=== PATIENT | female | born 1945 | race Caucasian/White ===

== ENCOUNTER → 2020-04-17 | Outpatient (CLI) | payer MEDICARE ==
[2016-08-21 19:19] VITALS: BP 183/90
[~2020-04-17] MED LIST: ASPI-252 PO; ATOR10TA60 PO; DOXY100C14 PO; HYDR-3165 PO; HYDR12.59 PO; LISI-334 PO; METO50TA6 PO
== END ==
LOC: LAB 13:08
PROVIDERS: ATTEND Nurse Anesthetist, Certified Registered
DX: Z01.812 Encounter for preprocedural laboratory examination (principal); D50.9 Iron deficiency anemia, unspecified; Z20.828 Contact with and (suspected) exposure to other viral communicable diseases
CPT/HCPCS: U0003-CS

== ENCOUNTER → 2020-04-20 | Day surgery (SDC) | payer MEDICARE ==
[~2020-04-20] MED LIST changes: +IPRATRPIUM/ALBUTEROL 0.5/2.5MG 3 ML NEBU. NEB PRN; +IV RINGERS SOLUTION,LACTATED 1,000 ML IV SCH; +LIDOCAINE 2% PF 5 ML VIAL. ONE; +MIDAZOLAM HCL PF 2 MG/2 ML VIAL. IV ONE; +ONDANSETRON PF 4 MG/2 ML VIAL. IV PRN; +PROPOFOL 10,000 MCG/ML (20ML) VIAL IV ONE; +SODIUM PHOSPHATES 19/7GM 133 ML ENEMA. ONE; +SODIUM PHOSPHATES 19/7GM 133 ML ENEMA. PR ONE
--- NOTE | 2020-04-20 12:28 | NUR ---
IP: enema results clear yellow.
[2020-04-20 13:57] VITALS: BP 135/77
--- NOTE | 2020-04-26 19:09 | PATHOLOGY ---
[facility] Accession Number: [id number] . 01 Material submitted: . PART A: stomach - BIOPSY ANTRUM, GASTRITIS PART B: cecum - POLYP CECUM . 01 Clinical history: . HX ULCER, POLYP . 02 Diagnosis: A. Gastric biopsies, antrum: - Chronic gastritis, mild. . B. Colon biopsies, cecal polyp: - Consistent with prominent mucosal fold, with focal mucosal lymphoid aggregate and focally increased intraepithelial eosinophils. . (JPM:glenn; 04/26/2020) BANNER 04/26/2020 1836 Local . 02 Comment: Sections of the gastric biopsy reveal segments of gastric antral mucosa showing congestion and mild chronic inflammation. A properly controlled immunoperoxidase stain for Helicobacter is negative for Helicobacter organisms. . Sections of the cecal biopsy reveal segments of colonic mucosa, consistent with prominent mucosal fold. One of the biopsy segments does contain a portion of a mucosal-associated lymphoid aggregate. Elsewhere, the mucosa shows focally increased numbers of intraepithelial eosinophils. The significance of the latter finding is unknown. There is no evidence of a chronic destructive colitis. There are no adenomatous changes or evidence of malignancy. . (JPM:glenn; 04/26/2020) . Special stain performed: Immunoperoxidase stain for Helicobacter on A1. . 02 Electronically signed: . Juan José Mathews MD, Pathologist NPI- [id number] . 01 Gross description: . A. The specimen is received in formalin, labeled "Car[place] Carmichael, biopsy antrum". Received are two segments of pale acosta soft tissue ranging in size from 0.4 to 0.5 cm in maximum dimensions. The specimen is submitted entirely in cassette A1. . B. The specimen is received in formalin, labeled "Carol Carmichael, polyp cecum". Received are two segments of pale acosta soft tissue ranging in size from 0.3 to 0.7 cm in maximum dimensions. The specimen is submitted entirely in cassette B1. (CAA; 04/25/2020) QAC/QAC 04/25/2020 1151 Local . 02 Pathologist provided ICD-10: K29.50, Z87.19 . 02 CPT . 981562, 791415, [id number] Specimen Comment: A courtesy copy of this report has been sent to [phone] Specimen Comment: Report sent to Performed at: 01 [facility] [address] [place] [address] [address], [place] [id number] MD Arnoldo Strong MD Phone: [phone] Performed at: 02 [facility] [address] [place] [id number] MD Juan José Mathews MD Phone: [phone]
== END | disposition home or self-care (01) ==
LOC: SURG 11:15
PROVIDERS: ATTEND Internal Medicine Gastroenterology
DX: D50.9 Iron deficiency anemia, unspecified (principal); K63.5 Polyp of colon; K64.0 First degree hemorrhoids; K63.89 Other specified diseases of intestine; K31.89 Other diseases of stomach and duodenum; K29.50 Unspecified chronic gastritis without bleeding; K21.00 Gastro-esophageal reflux disease with esophagitis, without bleeding; K29.80 Duodenitis without bleeding; K26.9 Duodenal ulcer, unspecified as acute or chronic, without hemorrhage or perforation; K44.9 Diaphragmatic hernia without obstruction or gangrene; E11.22 Type 2 diabetes mellitus with diabetic chronic kidney disease; I12.9 Hypertensive chronic kidney disease with stage 1 through stage 4 chronic kidney disease, or unspecified chronic kidney disease; N18.2 Chronic kidney disease, stage 2 (mild); M19.90 Unspecified osteoarthritis, unspecified site; E78.00 Pure hypercholesterolemia, unspecified; J44.9 Chronic obstructive pulmonary disease, unspecified; E66.9 Obesity, unspecified; Z79.899 Other long term (current) drug therapy; Z90.710 Acquired absence of both cervix and uterus; Z98.890 Other specified postprocedural states; Z68.35 Body mass index [BMI] 35.0-35.9, adult
CPT/HCPCS: 43239; 45380; J2001; J2704; J7120

== ENCOUNTER → 2020-07-24 | Outpatient (CLI) | payer MEDICARE ==
[2020-04-20 13:57] VITALS: BP 135/77
[~2020-07-24] MED LIST changes: +CETI10TA74 PO; -IPRATRPIUM/ALBUTEROL 0.5/2.5MG 3 ML NEBU. NEB PRN; +IRON1CAP PO; -IV RINGERS SOLUTION,LACTATED 1,000 ML IV SCH; -LIDOCAINE 2% PF 5 ML VIAL. ONE; -MIDAZOLAM HCL PF 2 MG/2 ML VIAL. IV ONE; -ONDANSETRON PF 4 MG/2 ML VIAL. IV PRN; +PANT40TA6 PO; -PROPOFOL 10,000 MCG/ML (20ML) VIAL IV ONE; -SODIUM PHOSPHATES 19/7GM 133 ML ENEMA. ONE; -SODIUM PHOSPHATES 19/7GM 133 ML ENEMA. PR ONE
== END ==
LOC: LAB 13:23
PROVIDERS: ATTEND Nurse Anesthetist, Certified Registered
DX: Z01.812 Encounter for preprocedural laboratory examination (principal); K25.9 Gastric ulcer, unspecified as acute or chronic, without hemorrhage or perforation; Z20.828 Contact with and (suspected) exposure to other viral communicable diseases
CPT/HCPCS: U0003

== ENCOUNTER → 2020-07-27 | Day surgery (SDC) | payer MEDICARE ==
[~2020-07-27] MED LIST changes: +IPRATRPIUM/ALBUTEROL 0.5/2.5MG 3 ML NEBU. NEB PRN; +IV RINGERS SOLUTION,LACTATED 1,000 ML IV SCH; +LIDOCAINE 2% PF 5 ML VIAL. ONE; -LISI-334 PO; +LISI20TA18 PO; +MIDAZOLAM HCL PF 2 MG/2 ML VIAL. IV ONE; +ONDANSETRON PF 4 MG/2 ML VIAL. IV PRN; +PROPOFOL 10,000 MCG/ML (20ML) VIAL IV ONE
[2020-07-27 11:26] VITALS: BP 137/61
== END | disposition home or self-care (01) ==
LOC: SURG 09:16
PROVIDERS: ATTEND Internal Medicine Gastroenterology
DX: Z09 Encounter for follow-up examination after completed treatment for conditions other than malignant neoplasm (principal); K25.7 Chronic gastric ulcer without hemorrhage or perforation; I12.9 Hypertensive chronic kidney disease with stage 1 through stage 4 chronic kidney disease, or unspecified chronic kidney disease; E11.22 Type 2 diabetes mellitus with diabetic chronic kidney disease; N18.2 Chronic kidney disease, stage 2 (mild); E78.00 Pure hypercholesterolemia, unspecified; K31.89 Other diseases of stomach and duodenum; D50.9 Iron deficiency anemia, unspecified; J44.9 Chronic obstructive pulmonary disease, unspecified; M19.90 Unspecified osteoarthritis, unspecified site; K29.50 Unspecified chronic gastritis without bleeding; E66.9 Obesity, unspecified; Z68.35 Body mass index [BMI] 35.0-35.9, adult; Z79.899 Other long term (current) drug therapy; Z79.82 Long term (current) use of aspirin
CPT/HCPCS: 43239; 88305; 88342; J2001; J2704; J7120

== ENCOUNTER → 2020-11-07 | Outpatient (CLI) | payer MEDICARE ==
[2020-07-27 11:26] VITALS: BP 137/61
[~2020-11-07] MED LIST changes: -IPRATRPIUM/ALBUTEROL 0.5/2.5MG 3 ML NEBU. NEB PRN; -IV RINGERS SOLUTION,LACTATED 1,000 ML IV SCH; -LIDOCAINE 2% PF 5 ML VIAL. ONE; -MIDAZOLAM HCL PF 2 MG/2 ML VIAL. IV ONE; -ONDANSETRON PF 4 MG/2 ML VIAL. IV PRN; -PROPOFOL 10,000 MCG/ML (20ML) VIAL IV ONE
[2020-11-07 10:19] LABS: ALBUMIN 3.4 g/dL (3.4-5.0); CALCIUM 8.8 mg/dL (8.5-10.1); CREATININE 1.5 mg/dL (0.6-1.0); GFR 33.9; PHOSPHORUS 3.4 mg/dL (2.6-4.7); POTASSIUM 4.7 mmol/L (3.5-5.1)
[2020-11-07 14:11] LABS: BILIRUBIN,URINE NEG (NEG); CLARITY,URINE CLEAR; COLOR,URINE YELLOW; GLUCOSE,URINE NEG (NEG); NITRITE,URINE NEG (NEG); UROBILINOGEN,URINE 0.2 mg/dL (0.2 mg/dL)
[2020-11-07 14:13] LABS: RBC,URINE 0 /HPF (0-2)
[2020-11-07 14:14] LABS: BACTERIA,URINE FEW /HPF (0-FEW); SQUAMOUS EPITHELIAL CELL,UR FEW /LPF; WBC,URINE 0 /HPF (0-4)
[2020-11-08 03:08] LABS: MICROALB RD UR 8.9 ug/mL (Not Estab.)
== END ==
LOC: LAB 09:19
PROVIDERS: ATTEND Internal Medicine Nephrology
DX: I12.9 Hypertensive chronic kidney disease with stage 1 through stage 4 chronic kidney disease, or unspecified chronic kidney disease (principal); N18.32 Chronic kidney disease, stage 3b; N17.9 Acute kidney failure, unspecified; E66.9 Obesity, unspecified; Z68.42 Body mass index [BMI] 45.0-49.9, adult
CPT/HCPCS: 36415; 80069; 81001; 82043; 82570; 84156

== ENCOUNTER → 2021-08-26 | Outpatient (CLI) | payer MEDICARE ==
[2020-07-27 11:26] VITALS: BP 137/61
[~2021-08-26] MED LIST changes: +DOXY-181 PO; -DOXY100C14 PO
[2021-08-26 10:47] LABS: ALBUMIN 3.6 g/dL (3.4-5.0); CREATININE 1.5 mg/dL (0.6-1.0); GFR 33.9; PHOSPHORUS 4.1 mg/dL (2.6-4.7); POTASSIUM 5.4 mmol/L (3.5-5.1)
== END ==
LOC: LAB 09:38
PROVIDERS: ATTEND Internal Medicine Nephrology
DX: I12.9 Hypertensive chronic kidney disease with stage 1 through stage 4 chronic kidney disease, or unspecified chronic kidney disease (principal); N18.32 Chronic kidney disease, stage 3b; N17.9 Acute kidney failure, unspecified; D64.9 Anemia, unspecified; E66.9 Obesity, unspecified; R73.03 Prediabetes; Z68.41 Body mass index [BMI] 40.0-44.9, adult
CPT/HCPCS: 36415; 80069; 82728; 83540; 83550